=== PATIENT | female | born 1980 | race Caucasian/White ===

== ENCOUNTER 2018-03-26 22:33 | Emergency (ER) | payer OTHER ==
[~2018-03-26] VITALS: Ht 175.3 cm; Wt 77.3 kg
[2018-03-26 22:51] VITALS: BP 117/82; Ht 175.3 cm; Wt 77.3 kg
[2018-03-26] MEDS ORDERED: FIORICET-COD 51 EACH PO (22:52)
[2018-03-26] MEDS ORDERED: VERELAN120 MG PO (22:52)
[2018-03-26] MEDS ORDERED: KLONOPIN1 MG PO (22:52)
[2018-03-26] MEDS ORDERED: AMBIEN10 MG PO (22:53)
== END 2018-03-27 00:01 | disposition left against medical advice (07) ==
LOC: D.ER 22:33
DX: R20.2 Paresthesia of skin (principal)

== ENCOUNTER 2018-03-28 21:12 | Emergency (ER) | payer OTHER ==
[~2018-03-28] VITALS: Ht 175.3 cm; Wt 79.5 kg
[~2018-03-28 21:12] MED LIST: AMBIEN10 MG PO; FIORICET-COD 51 EACH PO; KLONOPIN1 MG PO; VERELAN120 MG PO
[2018-03-28 21:20] VITALS: Ht 175.3 cm; Wt 79.5 kg
[2018-03-29] MEDS ORDERED: NAPROSYN500 MG PO (00:32)
[2018-03-29] MEDS ORDERED: PERCOCET 7.5/321 TAB PO (00:32)
[2018-03-29 02:04] VITALS: BP 125/67
== END 2018-03-29 02:04 | disposition home or self-care (01) ==
LOC: D.ER 21:12
DX: M54.5 Low back pain (principal); F17.200 Nicotine dependence, unspecified, uncomplicated

== ENCOUNTER 2018-05-06 10:30 | Emergency (ER) | payer OTHER ==
[~2018-05-06] VITALS: Ht 175.3 cm; Wt 77.3 kg
[~2018-05-06 10:30] MED LIST changes: +NAPROSYN500 MG PO; +PERCOCET 7.5/321 TAB PO
[2018-05-06 10:34] VITALS: BP 139/78; Ht 175.3 cm; Wt 77.3 kg
[2018-05-06 11:12] LABS: BASOPHILS 0.2 % (0-2); EOSINOPHILS 9.6 % (0-7); HEMATOCRIT 37.9 % (36.0-48.0); IMMATURE GRANULOCYTES 0.2 % (0-5); LYMPHOCYTES 30.6 % (15-50); MCH 29.1 pg (26.0-34.0); MCHC 34.3 g/dL (31.0-37.0); MEAN PLATELET VOLUME 10.2 fL (7.4-10.4); MONOCYTES 5.9 % (2-11); NEUTROPHILS 53.5 % (40-80); PLATELET COUNT 331 10x3/uL (130-400); RBC 4.46 10x6/uL (4.00-5.40); RDW 13.1 % (11.5-14.5); WBC 6.3 10x3/uL (4.8-10.8)
[2018-05-06 11:16] LABS: APTT 28.3 SECONDS (22.8-39.4); INR 0.98 (0.85-1.17); PROTIME 12.6 SECONDS (11.6-15.0)
[2018-05-06 11:20] LABS: UDS - AMPHET POSITIVE QUAL (NEGATIVE); UDS - BARB NEGATIVE QUAL (NEGATIVE); UDS - BENZO NEGATIVE QUAL (NEGATIVE); UDS - COCAINE NEGATIVE QUAL (NEGATIVE); UDS - OPIATE NEGATIVE QUAL (NEGATIVE); UDS - PCP NEGATIVE QUAL (NEGATIVE); UDS - THC NEGATIVE QUAL (NEGATIVE)
[2018-05-06 11:26] LABS: ALBUMIN 3.4 g/dL (3.4-5.0); ANION GAP 12.1 mmol/L (8-16); BILIRUBIN - TOTAL 0.12 mg/dL (0.2-1.3); CALCIUM 8.4 mg/dL (8.5-10.1); CARBON DIOXIDE 24.4 mmol/L (21.0-32.0); CREATININE - SERUM 1.1 mg/dL (0.6-1.3); POTASSIUM - SERUM 3.5 mmol/L (3.5-5.1); PROTEIN - SERUM 6.7 g/dL (6.4-8.2)
[2018-05-06 12:18] LABS: APPEARANCE HAZY (CLEAR); BACTERIA MANY /hpf (NONE SEEN); BILIRUBIN NEGATIVE (NEGATIVE); COLOR YELLOW (YELLOW); EPITHELIAL CELLS OCC /hpf (0-5); GLUCOSE NEGATIVE (NEGATIVE); KETONE NEGATIVE (NEGATIVE); MUCUS <1+ /lpf (NONE SEEN); NITRITE POSITIVE (NEGATIVE); PROTEIN NEGATIVE (NEGATIVE); UROBILINOGEN NORMAL (NORMAL); WHITE CELLS - URINE OCC /hpf (0-5)
== END 2018-05-06 15:54 | disposition home or self-care (01) ==
LOC: D.ER 10:30
PROVIDERS: Family Medicine
DX: R51 Headache (principal); R53.1 Weakness

== ENCOUNTER 2018-05-07 21:11 | Emergency (ER) | payer OTHER ==
[~2018-05-07] VITALS: Ht 175.3 cm; Wt 77.1 kg
[2018-05-07 21:26] VITALS: Ht 175.3 cm; Wt 77.1 kg
[2018-05-07 23:20] VITALS: BP 120/74
== END 2018-05-07 23:20 | disposition home or self-care (01) ==
LOC: D.ER 21:11
DX: G43.409 Hemiplegic migraine, not intractable, without status migrainosus (principal); R47.81 Slurred speech; R53.1 Weakness

== ENCOUNTER 2018-05-12 08:06 | Emergency (ER) | payer OTHER ==
[~2018-05-12] VITALS: Ht 175.3 cm; Wt 77.3 kg
[2018-05-12 08:16] VITALS: Ht 175.3 cm; Wt 77.3 kg
[2018-05-12 10:32] VITALS: BP 124/68
== END 2018-05-12 10:00 | disposition home or self-care (01) ==
LOC: D.ER 08:06
DX: G43.409 Hemiplegic migraine, not intractable, without status migrainosus (principal); R29.810 Facial weakness; G81.94 Hemiplegia, unspecified affecting left nondominant side; F17.200 Nicotine dependence, unspecified, uncomplicated

== ENCOUNTER 2018-05-31 20:48 | Emergency (ER) | payer OTHER ==
[~2018-05-31] VITALS: Ht 175.3 cm; Wt 77.3 kg
[2018-05-31 20:58] VITALS: Ht 175.3 cm; Wt 77.3 kg
[2018-05-31 23:05] VITALS: BP 138/72
== END 2018-05-31 23:04 | disposition home or self-care (01) ==
LOC: D.ER 20:48
DX: M54.16 Radiculopathy, lumbar region (principal); R10.9 Unspecified abdominal pain; W10.9XXA Fall (on) (from) unspecified stairs and steps, initial encounter; Y93.89 Activity, other specified; Y92.019 Unspecified place in single-family (private) house as the place of occurrence of the external cause; F17.200 Nicotine dependence, unspecified, uncomplicated

== ENCOUNTER 2018-06-06 19:33 | Emergency (ER) | payer OTHER ==
[~2018-06-06] VITALS: Ht 175.3 cm; Wt 79.5 kg
[2018-06-06 19:37] VITALS: Ht 175.3 cm; Wt 79.5 kg
[2018-06-06 19:59] LABS: BASOPHILS 0.3 % (0-2); EOSINOPHILS 8.3 % (0-7); HEMATOCRIT 38.6 % (36.0-48.0); HEMOGLOBIN 13.4 g/dL (12-16); IMMATURE GRANULOCYTES 0.1 % (0-5); LYMPHOCYTES 36.2 % (15-50); MCH 29.3 pg (26.0-34.0); MCHC 34.7 g/dL (31.0-37.0); MCV 84.3 fL (80.0-100.0); MEAN PLATELET VOLUME 9.8 fL (7.4-10.4); MONOCYTES 8.6 % (2-11); NEUTROPHILS 46.5 % (40-80); PLATELET COUNT 352 10x3/uL (130-400); RBC 4.58 10x6/uL (4.00-5.40); RDW 13.2 % (11.5-14.5); WBC 7.7 10x3/uL (4.8-10.8)
[2018-06-06 20:17] LABS: ALBUMIN 3.6 g/dL (3.4-5.0); ALKALINE PHOSPHATASE 86 U/L (46-116); ALT (SGPT) 23 U/L (10-68); BILIRUBIN - TOTAL 0.22 mg/dL (0.2-1.3); CALC OSMOLALITY 282 mosm/kg (275-300); CALCIUM 9.1 mg/dL (8.5-10.1); CARBON DIOXIDE 25.5 mmol/L (21.0-32.0); CHLORIDE - SERUM 106 mmol/L (98-107); CREATININE - SERUM 0.8 mg/dL (0.6-1.3); GLUCOSE 110 mg/dL (74-106); POTASSIUM - SERUM 3.8 mmol/L (3.5-5.1); PROTEIN - SERUM 7.1 g/dL (6.4-8.2); SODIUM 141 mmol/L (136-145); UREA NITROGEN 14 mg/dL (7-18); eGFR NON AFRICAN AMERICAN 84 mL/min (90-120)
[2018-06-06 20:35] LABS: APPEARANCE CLEAR (CLEAR); BILIRUBIN NEGATIVE (NEGATIVE); COLOR STRAW (YELLOW); GLUCOSE NEGATIVE (NEGATIVE); KETONE NEGATIVE (NEGATIVE); NITRITE POSITIVE (NEGATIVE); PROTEIN NEGATIVE (NEGATIVE); SPECIFIC GRAVITY 1.005 (1.005-1.020); UROBILINOGEN NORMAL (NORMAL)
[2018-06-06 20:37] LABS: HCG URINE NEGATIVE (NEGATIVE)
[2018-06-06 20:41] LABS: UDS - AMPHET NEGATIVE QUAL (NEGATIVE); UDS - BARB NEGATIVE QUAL (NEGATIVE); UDS - BENZO NEGATIVE QUAL (NEGATIVE); UDS - COCAINE NEGATIVE QUAL (NEGATIVE); UDS - OPIATE NEGATIVE QUAL (NEGATIVE); UDS - PCP NEGATIVE QUAL (NEGATIVE); UDS - THC NEGATIVE QUAL (NEGATIVE)
[2018-06-06 21:07] VITALS: BP 133/91
== END 2018-06-06 21:07 | disposition home or self-care (01) ==
LOC: D.ER 19:33
PROVIDERS: Family Medicine
DX: R41.82 Altered mental status, unspecified (principal); F17.200 Nicotine dependence, unspecified, uncomplicated

== ENCOUNTER 2018-06-17 13:12 | Emergency (ER) | payer OTHER ==
[2018-06-17 13:18] VITALS: BP 130/91; Ht 175.3 cm
[2018-06-17] MEDS ORDERED: CHANTIX 1 MG TAB1 MG PO (13:21)
== END 2018-06-17 15:41 | disposition home or self-care (01) ==
LOC: D.ER 13:12
DX: G43.409 Hemiplegic migraine, not intractable, without status migrainosus (principal); M79.602 Pain in left arm; R20.2 Paresthesia of skin; F17.200 Nicotine dependence, unspecified, uncomplicated

== ENCOUNTER 2018-07-16 16:35 | Emergency (ER) | payer OTHER ==
[~2018-07-16] VITALS: Ht 175.3 cm; Wt 79.5 kg
[~2018-07-16 16:35] MED LIST changes: +CHANTIX 1 MG TAB1 MG PO
[2018-07-16 16:39] VITALS: BP 102/71; Ht 175.3 cm; Wt 79.5 kg
== END 2018-07-16 18:32 | disposition left against medical advice (07) ==
LOC: D.ER 16:35
DX: G43.909 Migraine, unspecified, not intractable, without status migrainosus (principal); F17.200 Nicotine dependence, unspecified, uncomplicated

== ENCOUNTER 2018-09-20 21:57 | Emergency (ER) | payer SELFPAY ==
[~2018-09-20] VITALS: Ht 175.3 cm; Wt 74.4 kg
[2018-09-20 22:03] VITALS: Ht 175.3 cm; Wt 74.4 kg
[2018-09-20] MEDS ORDERED: KLONOPIN1 MG PO (22:06)
[2018-09-20] MEDS ORDERED: AMBIEN10 MG PO (22:06)
[2018-09-21 00:03] VITALS: BP 122/76
== END 2018-09-21 00:03 | disposition home or self-care (01) ==
LOC: D.ER 21:57
DX: G43.409 Hemiplegic migraine, not intractable, without status migrainosus (principal); R29.810 Facial weakness; R47.81 Slurred speech; G81.94 Hemiplegia, unspecified affecting left nondominant side; F17.200 Nicotine dependence, unspecified, uncomplicated

== ENCOUNTER 2019-02-11 22:03 | Emergency (ER) | payer MEDICAID ==
[2018-09-20 22:03] VITALS: BMI 24.2
== END 2019-02-11 22:18 | disposition left against medical advice (07) ==
LOC: D.ER 22:03
DX: G81.94 Hemiplegia, unspecified affecting left nondominant side (principal); R51 Headache